=== PATIENT | male | born 1970 | race Caucasian/White ===

== ENCOUNTER 2024-06-21 16:50 | Emergency (ER) | payer MEDICARE, MEDICAID ==
[~2024-06-21] VITALS: Ht 190.5 cm; Wt 118.2 kg
[2024-06-21] MEDS ORDERED: diphenhydrAMINE 25 MG/10 ML UD oral solution PO ONE (17:15)
[2024-06-21] MEDS: LORazepam 1 MG tablet PO ONE (17:35)
[2024-06-21 17:41] LABS: BASOPHILS # (AUTO) 0.1 X10'3 (0-0.2); EOSINOPHILS # (AUTO) 0.1 X10'3 (0-0.9); EOSINOPHILS % (AUTO) 1.4 % (0-6); HEMATOCRIT 45.3 % (42.0-52.0); HEMOGLOBIN 16.3 g/dl (14.0-17.9); LYMPHOCYTES # (AUTO) 2.3 X10'3 (1.1-4.8); MEAN CORPUSCULAR HEMOGLOBIN 31.9 PG (27.0-31.0); MEAN CORPUSCULAR HGB CONC 35.9 g/dL (33.0-36.5); MEAN CORPUSCULAR VOLUME 88.7 FL (78-98); MEAN PLATELET VOLUME 7.4 FL (7.4-10.4); MONOCYTES # (AUTO) 0.5 X10'3 (0-0.9); MONOCYTES % (AUTO) 8.7 % (2-12); NEUTROPHILS # (AUTO) 2.5 X10'3 (1.8-7.7); NEUTROPHILS % (AUTO) 45.9 % (42-75); PLATELET COUNT 99 X10'3 (140-440); RED CELL DISTRIBUTION WIDTH 14.2 % (11.5-14.5); WHITE BLOOD COUNT 5.3 X10'3 (4.5-11.0)
[2024-06-21] MEDS: diphenhydrAMINE 25mg capsule PO ONE (17:43)
[2024-06-21 17:58] LABS: URINE AMPHETAMINE SCREEN NEGATIVE (Neg); URINE BARBITUATE SCREEN NEGATIVE (Neg); URINE BENZODIAZEPINES SCREEN NEGATIVE (Neg); URINE CANNABINOID SCREEN NEGATIVE (Neg); URINE COCAINE SCREEN NEGATIVE (Neg); URINE METHADONE SCREEN NEGATIVE (Neg); URINE OPIATE SCREEN NEGATIVE (Neg); URINE PHENCYCLIDINE SCREEN NEGATIVE (Neg)
[2024-06-21 17:59] LABS: BILIRUBIN,URINE SMALL (Neg); CLARITY,URINE SLIGHTLY CLOUDY (Clear); COLOR,URINE YELLOW (Yellow); GLUCOSE, URINE NEGATIVE (Neg); KETONES,URINE NEGATIVE (Neg); LEUKOCYTE ESTERASE ,URINE NEGATIVE (Neg); NITRITES, URINE NEGATIVE (Neg); OCCULT BLOOD,URINE NEGATIVE (Neg); PH,URINE 5.5 (4.8-8.0); PROTEIN,URINE 30 mg/dl (Neg)
[2024-06-21] MEDS ORDERED: LISI20TA28 PO (18:00)
[2024-06-21] MEDS ORDERED: SUMA25TA35 PO (18:00)
[2024-06-21 18:06] LABS: ALBUMIN 3.3 G/DL (3.4-5.0); ANION GAP 12 (8-16); BLOOD UREA NITROGEN 19 MG/DL (7-18); BUN/CREATININE RATIO 14.6 (10.0-20.0); CALCIUM 8.3 MG/DL (8.5-10.1); CHLORIDE 101 MMOL/L (99-107); ETHANOL 253 MG/DL (<10); GLUCOSE 114 MG/DL (70-104); POTASSIUM 4.2 MMOL/L (3.5-5.1); SODIUM 138 MMOL/L (135-145); TOTAL CARBON DIOXIDE 25.4 MMOL/L (24-32); eCRCL 76 ML/MIN; eGFR 57 ML/MIN
[2024-06-21 18:07] LABS: UA COLLECTION TYPE CLN CATCH MIDSTREAM
[2024-06-21 18:08] LABS: HYALINE CASTS >30 /LPF (NEGATIVE)
[2024-06-21 18:09] LABS: BACTERIA,URINE FEW /HPF (Neg); MUCUS STRANDS MODERATE /LPF (Neg); RBC,URINE NONE SEEN /HPF (0-2); SQUAMOUS EPITHELIAL CELL,UR FEW /LPF (FEW)
[2024-06-21] MEDS: ondansetron 4mg rapidly disintigrating tab PO PRN (23:24)
[2024-06-21] MEDS: LORazepam 1 MG tablet PO PRN (23:24)
[2024-06-21] MEDS: FOSFOMYCIN TROMETHAMINE 3 GM PACKET PO ONE (23:29)
[2024-06-22] MEDS: lisinopril 10 MG tablet PO SCH (07:56)
[2024-06-22] MEDS: ibuprofen tablet 400 MG TABLET PO ONE (17:17)
[2024-06-23] MEDS: OLANZapine 5mg rapidly disint. tablet PO ONE (06:54)
[2024-06-23] MEDS: LORazepam 1 MG tablet PO ONE (06:54)
[2024-06-23] MEDS: diphenhydrAMINE 25mg capsule PO ONE (06:54)
[2024-06-23] MEDS: SUMAtriptan 25 MG tablet PO PRN (21:45)
[2024-06-23] MEDS: ibuprofen tablet 400 MG TABLET PO ONE (21:45)
[2024-06-23] MEDS: quetiapine 100mg tablet PO ONE (23:55)
[2024-06-24 04:18] VITALS: BP_DIAS 81; RESP 16; O2SAT 94
[2024-06-24] MEDS: ibuprofen tablet 400 MG TABLET PO PRN (09:15)
[2024-06-24 09:16] VITALS: BP_SYST 109; PULSE 62
[2024-06-24 11:56] VITALS: TEMP 98.3
== END 2024-06-24 11:59 | disposition home or self-care (01) ==
LOC: ER 16:51
DX: R45.851 Suicidal ideations (principal); Z20.822 Contact with and (suspected) exposure to COVID-19
CPT/HCPCS: 80048; 80305; 81001; 84443; 85025; 87811; 99285; G0480; Q0163; 80320